=== PATIENT | female | born 1940 | race Asian ===

== ENCOUNTER → 2017-11-01 | Outpatient (CLI) | payer MEDICARE, OTHER | END | disposition home or self-care (01) | LOC: RADPV 08:45 | PROVIDERS: ATTEND Internal Medicine | DX: M79.89 Other specified soft tissue disorders (principal); M25.872 Other specified joint disorders, left ankle and foot ==

== ENCOUNTER → 2018-06-08 | Outpatient (CLI) | payer MEDICARE, OTHER | END | disposition home or self-care (01) | LOC: RADPV 10:40 | PROVIDERS: ATTEND Internal Medicine | DX: M19.041 Primary osteoarthritis, right hand (principal); M19.042 Primary osteoarthritis, left hand ==

== ENCOUNTER 2018-12-05 14:28 | Emergency (ER) | payer MEDICARE, OTHER ==
[~2018-12-05] VITALS: Ht 152.4 cm; Wt 68.2 kg
[2018-12-05] MEDS ORDERED: METF-960 PO (14:53)
[2018-12-05 15:04] LABS: GLUCOSE,POINT OF CARE 129 MG/DL (70-110)
[2018-12-05] MEDS ORDERED: INDOMETHACIN 25 MG CAPSULE PO ONE (16:45)
[2018-12-05] MEDS ORDERED: COLCHICINE 0.6 MG TABLET PO ONE (16:45)
[2018-12-05 17:17] LABS: BASOPHILS % (AUTO) 0.3 % (0.0-2.0); EOSINOPHILS % (AUTO) 1.8 % (1.0-6.0); HEMATOCRIT 38.6 % (36-46); HEMOGLOBIN 12.4 g/dL (12.0-16.0); LYMPHOCYTES # (AUTO) 1.2 K/uL (1.0-4.8); LYMPHOCYTES % (AUTO) 12.2 % (22.0-44.0); MEAN CORPUSCULAR HEMOGLOBIN 29.8 pg (26.0-34.0); MEAN CORPUSCULAR HGB CONC 32.3 G/dL (31.0-37.0); MEAN CORPUSCULAR VOLUME 92 fL (80-100); MONOCYTES # (AUTO) 0.7 K/uL (0.1-1.0); MONOCYTES % (AUTO) 7.3 % (2.0-9.0); NEUTROPHILS # (AUTO) 7.6 K/uL (1.8-7.7); NEUTROPHILS % (AUTO) 78.4 % (40.0-70.0); PLATELET COUNT (AUTO) 305 K/uL (150-450); RED BLOOD CELL COUNT(AUTO) 4.17 MIL/uL (4.00-5.20); RED CELL DISTRIBUTION WIDTH 14.5 % (11.5-14.5)
[2018-12-05 17:30] LABS: CALCIUM, TOTAL 10.2 mg/dL (8.8-10.5); CREATININE 1.09 mg/dL (0.60-1.30); POTASSIUM 3.7 mmol/L (3.5-5.1)
[2018-12-05 17:35] VITALS: BP 142/74
[2018-12-05 17:37] LABS: ALBUMIN 4.2 g/dL (3.4-5.0); BILIRUBIN,TOTAL 0.2 mg/dL (0.1-1.0); TOTAL PROTEIN, SERUM 8.5 g/dL (6.4-8.2); URIC ACID 4.8 mg/dL (2.6-7.2)
== END 2018-12-05 18:31 | disposition home or self-care (01) ==
LOC: EMS 14:28
DX: M10.061 Idiopathic gout, right knee (principal); E11.9 Type 2 diabetes mellitus without complications; Z79.84 Long term (current) use of oral hypoglycemic drugs
CPT/HCPCS: 84550

== ENCOUNTER 2018-12-22 18:08 | Emergency (ER) | payer MEDICARE, OTHER ==
[~2018-12-22] VITALS: Ht 152.4 cm; Wt 51.8 kg
[~2018-12-22 18:08] MED LIST: METF-960 PO
[2018-12-22 18:35] LABS: GLUCOSE,POINT OF CARE 109 MG/DL (70-110)
[2018-12-22] MEDS ORDERED: KETOROLAC TROMETHAMINE 30 MG/ML VIAL IM ONE (20:15)
[2018-12-22 22:16] VITALS: BP 134/77
== END 2018-12-22 22:19 | disposition home or self-care (01) ==
LOC: EMS 18:09
DX: S20.211A Contusion of right front wall of thorax, initial encounter (principal); M10.9 Gout, unspecified; E11.9 Type 2 diabetes mellitus without complications; Z79.84 Long term (current) use of oral hypoglycemic drugs; W10.9XXA Fall (on) (from) unspecified stairs and steps, initial encounter; Y93.89 Activity, other specified; Y92.89 Other specified places as the place of occurrence of the external cause; Y99.8 Other external cause status
CPT/HCPCS: 71101; 82962; 96372; 99283; J1885

== ENCOUNTER 2019-01-31 08:26 | Emergency (ER) | payer MEDICARE, OTHER ==
[~2019-01-31] VITALS: Ht 149.9 cm; Wt 55.9 kg
[2019-01-31] MEDS ORDERED: HYDR25TA84 PO (08:35)
[2019-01-31] MEDS ORDERED: GEMF600T5 PO (08:35)
[2019-01-31] MEDS ORDERED: FENO145T PO (08:35)
[2019-01-31] MEDS ORDERED: LORA10TA7 PO (08:35)
[2019-01-31] MEDS ORDERED: DORZ210OS OU (08:35)
[2019-01-31] MEDS ORDERED: DSS100 PO (08:35)
[2019-01-31] MEDS ORDERED: LEVO75 PO (08:35)
[2019-01-31] MEDS ORDERED: CLON-570 PO (08:35)
[2019-01-31] MEDS ORDERED: METO50 PO (08:35)
[2019-01-31] MEDS ORDERED: LATA2.5D2 OU (08:35)
[2019-01-31] MEDS ORDERED: AMLO10TA7 PO (08:35)
[2019-01-31 08:38] LABS: GLUCOSE,POINT OF CARE 130 MG/DL (70-110)
[2019-01-31] MEDS ORDERED: SODIUM CHLORIDE 0.9% 1,000 ML IV ONE (09:15)
[2019-01-31 09:29] LABS: BASOPHILS % (AUTO) 0.4 % (0.0-2.0); EOSINOPHILS % (AUTO) 1.5 % (1.0-6.0); HEMATOCRIT 39.3 % (36-46); HEMOGLOBIN 12.6 g/dL (12.0-16.0); LYMPHOCYTES % (AUTO) 9.1 % (22.0-44.0); MEAN CORPUSCULAR HEMOGLOBIN 29.9 pg (26.0-34.0); MEAN CORPUSCULAR HGB CONC 32.1 G/dL (31.0-37.0); MEAN CORPUSCULAR VOLUME 93 fL (80-100); MONOCYTES # (AUTO) 0.9 K/uL (0.1-1.0); MONOCYTES % (AUTO) 7.9 % (2.0-9.0); NEUTROPHILS # (AUTO) 9.4 K/uL (1.8-7.7); NEUTROPHILS % (AUTO) 81.1 % (40.0-70.0); PLATELET COUNT (AUTO) 340 K/uL (150-450); RED BLOOD CELL COUNT(AUTO) 4.22 MIL/uL (4.00-5.20)
[2019-01-31] MEDS ORDERED: IOVERSOL 350 MG/ML 150 ML VIAL ONE (09:37)
[2019-01-31] MEDS ORDERED: SODIUM CHLORIDE 0.9% 100 ML ONE ×2 (09:37→10:48)
[2019-01-31 09:40] LABS: CALCIUM, TOTAL 10.1 mg/dL (8.8-10.5); CREATININE 1.03 mg/dL (0.60-1.30); POTASSIUM 3.6 mmol/L (3.5-5.1)
[2019-01-31 09:46] LABS: LACTIC ACID 1.5 mmol/L (0.4-2.0)
[2019-01-31 09:53] LABS: ALBUMIN 4.3 g/dL (3.4-5.0); BILIRUBIN,TOTAL 0.3 mg/dL (0.1-1.0); TOTAL PROTEIN, SERUM 8.8 g/dL (6.4-8.2)
[2019-01-31 09:54] LABS: INFLUENZA TYPE A NEGATIVE FOR TYPE A (NEGATIVE); INFLUENZA TYPE B NEGATIVE FOR TYPE B (NEGATIVE)
[2019-01-31] MEDS ORDERED: IOVERSOL 350 MG/ML 100 ML VIAL ONE (10:48)
[2019-01-31 12:34] VITALS: BP 135/68
== END 2019-01-31 12:38 | disposition home or self-care (01) ==
LOC: EMS 08:27
DX: R91.1 Solitary pulmonary nodule (principal); R07.89 Other chest pain; J02.9 Acute pharyngitis, unspecified; E11.9 Type 2 diabetes mellitus without complications; Z79.84 Long term (current) use of oral hypoglycemic drugs
CPT/HCPCS: 36415; 71046; 71275; 80053; 82962; 83605; 83880; 84484; 85025; 87040; 87804; 99284; J7030; J7050; Q9967

== ENCOUNTER → 2020-01-08 | Outpatient (CLI) | payer MEDICARE, OTHER ==
[~2020-01-08] MED LIST changes: +AMLO-258 PO; +CLON0.1T83 PO; +DORZ210OS OU; +DSS100 PO; +FENO145T PO; +GEMF600T5 PO; +HYDR25TA84 PO; +LATA2.5D2 OU; +LEVO75 PO; +LORA10TA7 PO; +METO50 PO
== END | disposition home or self-care (01) ==
LOC: RADPV 10:02
PROVIDERS: ATTEND Internal Medicine
DX: M19.042 Primary osteoarthritis, left hand (principal); M19.041 Primary osteoarthritis, right hand; M85.841 Other specified disorders of bone density and structure, right hand; M85.642 Other cyst of bone, left hand; M85.641 Other cyst of bone, right hand; M77.9 Enthesopathy, unspecified
CPT/HCPCS: 73130-TC